=== PATIENT | male | born 1980 | race Caucasian/White ===

== ENCOUNTER 2017-04-21 21:12 | Emergency (ER) | payer OTHER ==
[~2017-04-21] VITALS: Ht 190.5 cm; Wt 81.7 kg
[~2017-04-21 21:12] MED LIST: NORCO 5-325 TA1 EACH PO; TOBRAMYCIN SULFA5 ML OP
[2017-04-21] MEDS ORDERED: NAPROSYN500 MG PO (21:53)
[2017-04-21] MEDS ORDERED: NORCO 5-325 TA1 EACH PO (21:53)
[2017-04-21] MEDS ORDERED: TOBRADEX EYE DRO5 ML OPHTHALMIC (21:53)
[2017-04-21 22:48] VITALS: BP 122/78
== END 2017-04-21 22:49 | disposition home or self-care (01) ==
LOC: M.ERS 21:12
DX: T15.02XA Foreign body in cornea, left eye, initial encounter (principal); F10.99 Alcohol use, unspecified with unspecified alcohol-induced disorder; W45.8XXA Other foreign body or object entering through skin, initial encounter; Y93.89 Activity, other specified; Y92.89 Other specified places as the place of occurrence of the external cause; Y99.8 Other external cause status